=== PATIENT | male | born 1935 | race Caucasian/White ===

== ENCOUNTER 2018-01-22 06:19 | Emergency (ER) | payer OTHER, MEDICARE ==
[~2018-01-22] VITALS: Ht 182.9 cm; Wt 102.0 kg
[2018-01-22] MEDS ORDERED: PREDNISONE20 MG PO (09:10)
[2018-01-22 10:32] VITALS: BP 123/73
== END 2018-01-22 10:47 | disposition home or self-care (01) ==
LOC: EME 06:19 → EDBD 06:19 → EME 10:47
PROC: 08QPXZZ Repair Left Upper Eyelid, External Approach (ICD-10-PCS; principal; 2018-01-22)
DX: S01.112A Laceration without foreign body of left eyelid and periocular area, initial encounter (principal); J44.1 Chronic obstructive pulmonary disease with (acute) exacerbation; W19.XXXA Unspecified fall, initial encounter; I10 Essential (primary) hypertension; E11.51 Type 2 diabetes mellitus with diabetic peripheral angiopathy without gangrene; E78.5 Hyperlipidemia, unspecified; I69.359 Hemiplegia and hemiparesis following cerebral infarction affecting unspecified side; F41.9 Anxiety disorder, unspecified; F03.90 Unspecified dementia, unspecified severity, without behavioral disturbance, psychotic disturbance, mood disturbance, and anxiety; Z87.891 Personal history of nicotine dependence
CPT/HCPCS: 70450; 94640; 99281; 99284; J7512

== ENCOUNTER 2018-01-25 00:35 | Inpatient (IN) | payer OTHER, MEDICARE ==
[~2018-01-25] VITALS: Ht 190.5 cm; Wt 117.0 kg
[~2018-01-25 00:35] MED LIST: PREDNISONE20 MG PO
[2018-01-25 01:21] LABS: BASOPHIL (%) 0 % (0-1); EOSINOPHIL (%) 0.4 % (0-5); HEMATOCRIT 31.1 % (38.0-50.0); IMMATURE GRANULOCYTE (%) 0.6 % (0.0-0.7); LYMPHOCYTE (%) 9.5 % (15-42); LYMPHOCYTE COUNT 0.9 K/uL (1.0-2.8); MCH 31.7 PG (29.0-34.0); MCHC 32.2 G/DL (30.0-36.0); MCV 98.7 FL (86-99); MONOCYTE (%) 4.7 % (3-12); MONOCYTE COUNT 0.4 K/uL (0-0.8); NEUTROPHIL (%) 84.8 % (45-76); PLATELET COUNT 364 K/uL (156-360); RBC DIS.WIDTH-CV 13.7 % (11.8-14.6); RED BLOOD COUNT 3.15 M/uL (4.00-5.50); WHITE BLOOD COUNT 9.5 K/uL (4.1-10.2)
[2018-01-25 01:31] LABS: ALBUMIN 3.3 g/dL (3.2-4.8); CHLORIDE 98 mEq/L (99-109); POTASSIUM 5.7 mEq/L (3.7-5.4); SODIUM 136 mEq/L (136-147)
[2018-01-25 01:33] LABS: TOTAL PROTEIN 7.1 g/dL (6.4-8.3)
[2018-01-25 01:35] LABS: TOTAL BILIRUBIN 0.2 mg/dL (0.0-1.0)
[2018-01-25 01:37] LABS: ALKALINE PHOSPHATASE 122 IU/L (3-129); CREATININE 2.1 mg/dL (0.6-1.3); GFR ESTIMATE (CALCULATED) 32 mL/min/ (58.99-99999)
[2018-01-25 01:38] LABS: AST (GOT) 29 IU/L (2-34); UREA NITROGEN (BUN) 53 mg/dL (9-23)
[2018-01-25 01:40] LABS: ALT (GPT) 43 IU/L (3-49)
[2018-01-25 01:43] LABS: TROP-I INTERPRETATION NEGATIVE; TROPONIN-I 0.26 ng/mL (0.0-0.30)
[2018-01-25 01:46] LABS: GLUCOSE 480 mg/dL (70-99)
[2018-01-25 07:27] VITALS: BP 153/70
[2018-01-25 12:16] VITALS: BP 128/86
[2018-01-25 15:32] VITALS: BP 180/86
[2018-01-25] MEDS ORDERED: VITAMIN D31000 UNI2 PO (16:06)
[2018-01-25] MEDS ORDERED: LITE COAT ASPI325 M1 PO (16:07)
[2018-01-25] MEDS ORDERED: B-121000 MC2 PO (16:08)
[2018-01-25] MEDS ORDERED: LISINOPRIL10 MG PO (16:08)
[2018-01-25] MEDS ORDERED: MAG-OXIDE400 MG PO (16:09)
[2018-01-25] MEDS ORDERED: NAMENDA10 MG PO (16:10)
[2018-01-25] MEDS ORDERED: SIMVASTATIN80 MG PO (16:11)
[2018-01-25] MEDS ORDERED: GABAPENTIN100 MG PO (16:11)
[2018-01-25] MEDS ORDERED: LANTUS 10100 UNITS/ SQ (16:12)
[2018-01-25] MEDS ORDERED: HUMALOG100 UNIT/2 SC (16:14)
[2018-01-25] MEDS ORDERED: PREDNISONE20 MG PO (16:15)
[2018-01-25] MEDS ORDERED: LEVAQUIN250 MG PO (16:17)
[2018-01-25 19:22] VITALS: BP 164/74
[2018-01-26 00:20] VITALS: BP 162/80
[2018-01-26 07:21] VITALS: BP 124/71
[2018-01-26] MEDS ORDERED: DELTASONE20 M1 PO (09:30)
[2018-01-26] MEDS ORDERED: DUONEB 2.5-0.5 M3 ML AEROSOL ×2 (09:34→09:36)
[2018-01-26] MEDS ORDERED: ATIVAN1 MG PO (09:36)
[2018-01-26] MEDS ORDERED: LASIX20 MG PO (09:37)
[2018-01-26 11:10] VITALS: BP 133/69
[2018-01-26 15:08] VITALS: BP 142/64
[2018-01-26 19:48] VITALS: BP 137/65
[2018-01-26 23:35] VITALS: BP 167/75
[2018-01-27 04:21] VITALS: BP 131/68
[2018-01-27 06:34] LABS: HEMATOCRIT 34.6 % (38.0-50.0); HEMOGLOBIN 10.5 G/DL (12.5-16.6); MCH 30.8 PG (29.0-34.0); MCHC 30.3 G/DL (30.0-36.0); MCV 101.5 FL (86-99); NRBC (%) 0.2 /100 WBC (0-0); PLATELET COUNT 413 K/uL (156-360); RBC DIS.WIDTH-CV 13.8 % (11.8-14.6); RBC DIS.WIDTH-SD 51.8 % (39-53); RED BLOOD COUNT 3.41 M/uL (4.00-5.50); WHITE BLOOD COUNT 12.5 K/uL (4.1-10.2)
[2018-01-27 08:35] LABS: CHLORIDE 99 MEQ/L (99-109); GFR ESTIMATE (CALCULATED) 48 mL/min/ (58.99-99999); POTASSIUM 5.7 MEQ/L (3.7-5.4); SODIUM 138 MEQ/L (136-147); UREA NITROGEN (BUN) 36 mg/dL (9-23)
[2018-01-27 08:46] LABS: CREATININE 1.5 MG/DL (0.6-1.3); GLUCOSE 54 mg/dL (70-99)
[2018-01-27 08:56] VITALS: BP 123/59
[2018-01-27 10:57] LABS: HEMOGLOBIN A1c (GLYCOHEMOGLOB) 9.6 % (Below 5.7)
[2018-01-27 11:32] LABS: BASE EXCESS 3.8 mEq/L (-3 to +3); CARBOXY HGB 1.3 % (0-5); METHEMOGLOBIN 1.1 % (0-1.5); PCO2 68 mm Hg (35-45); PO2 58 mm Hg (80-100)
[2018-01-27 11:33] LABS: COMMENTS - BLOOD GASES A+C+; DEVICE NC; O2 FLOW 8 L/MIN; SITE RR; TOTAL RESP RATE 18 resp/min; pH 7.28 (7.35-7.45)
[2018-01-27 13:36] VITALS: BP 162/72
[2018-01-27 18:10] LABS: COMMENTS - BLOOD GASES A+C+; DEVICE HIGH FLOW NC; O2 FLOW 10 L/MIN; SITE RR; pH 7.32 (7.35-7.45)
[2018-01-27 18:11] LABS: BASE EXCESS 3.6 mEq/L (-3 to +3); BICARBONATE 30.9 mEq/L (22-26); O2 SATURATION (CALCULATED) 96.9 % (95-99); PCO2 60 mm Hg (35-45); PO2 85 mm Hg (80-100)
[2018-01-27 18:36] LABS: CHLORIDE 98 MEQ/L (99-109); CREATININE 1.5 MG/DL (0.6-1.3); GFR ESTIMATE (CALCULATED) 48 mL/min/ (58.99-99999); POTASSIUM 5.1 MEQ/L (3.7-5.4); SODIUM 137 MEQ/L (136-147); UREA NITROGEN (BUN) 42 mg/dL (9-23)
[2018-01-27 18:40] LABS: GLUCOSE 123 mg/dL (70-99)
[2018-01-27 19:36] VITALS: BP 159/74
[2018-01-28 00:40] VITALS: BP 139/76
[2018-01-28 04:45] VITALS: BP 128/65
[2018-01-28 05:50] LABS: HEMATOCRIT 30.9 % (38.0-50.0); HEMOGLOBIN 9.8 G/DL (12.5-16.6); MCH 30.8 PG (29.0-34.0); MCHC 31.7 G/DL (30.0-36.0); PLATELET COUNT 368 K/uL (156-360); RBC DIS.WIDTH-CV 13.3 % (11.8-14.6); RBC DIS.WIDTH-SD 47.8 % (39-53); RED BLOOD COUNT 3.18 M/uL (4.00-5.50); WHITE BLOOD COUNT 7.1 K/uL (4.1-10.2)
[2018-01-28 05:54] LABS: MCV 97.2 FL (86-99)
[2018-01-28 06:01] LABS: CHLORIDE 96 MEQ/L (99-109); CREATININE 1.8 MG/DL (0.6-1.3); GFR ESTIMATE (CALCULATED) 38 mL/min/ (58.99-99999); POTASSIUM 5.4 MEQ/L (3.7-5.4); SODIUM 137 MEQ/L (136-147); UREA NITROGEN (BUN) 53 mg/dL (9-23)
[2018-01-28 06:05] LABS: GLUCOSE 250 mg/dL (70-99)
[2018-01-28 07:30] VITALS: BP 169/93
[2018-01-28 11:43] VITALS: BP 168/86
[2018-01-28 20:45] VITALS: BP 161/81
[2018-01-28 23:49] VITALS: BP 178/86
[2018-01-29 01:32] VITALS: BP 144/67
[2018-01-29 03:32] VITALS: BP 147/65
[2018-01-29 05:36] LABS: HEMATOCRIT 29.2 % (38.0-50.0); HEMOGLOBIN 9.4 G/DL (12.5-16.6); MCH 31.4 PG (29.0-34.0); MCHC 32.2 G/DL (30.0-36.0); MCV 97.7 FL (86-99); NRBC (%) 0.2 /100 WBC (0-0); PLATELET COUNT 359 K/uL (156-360); RBC DIS.WIDTH-CV 13.5 % (11.8-14.6); RBC DIS.WIDTH-SD 48.5 % (39-53); RED BLOOD COUNT 2.99 M/uL (4.00-5.50); WHITE BLOOD COUNT 12.4 K/uL (4.1-10.2)
[2018-01-29 06:15] LABS: CHLORIDE 97 MEQ/L (99-109); CREATININE 1.7 MG/DL (0.6-1.3); GFR ESTIMATE (CALCULATED) 41 mL/min/ (58.99-99999); GLUCOSE 194 mg/dL (70-99); POTASSIUM 5.2 MEQ/L (3.7-5.4); SODIUM 136 MEQ/L (136-147); UREA NITROGEN (BUN) 55 mg/dL (9-23)
[2018-01-29 07:53] VITALS: BP 177/77
[2018-01-29 12:00] VITALS: BP 129/65
[2018-01-29 17:30] VITALS: BP 165/78
[2018-01-29 19:45] VITALS: BP 148/81
[2018-01-30] VITALS: BP 141/77
[2018-01-30 03:00] VITALS: BP 133/85
[2018-01-30 06:52] VITALS: BP 137/65
[2018-01-30 11:05] VITALS: BP 128/62
[2018-01-30 15:50] VITALS: BP 155/78
[2018-01-30 21:30] VITALS: BP 153/79
[2018-01-31] VITALS (7 sets, daily range): BP systolic 136–156; BP diastolic 67–92
[2018-01-31 15:07] LABS: COMMENTS - BLOOD GASES A+C+; DEVICE NRBM; FI02 100 %; O2 FLOW 15 L/MIN; PCO2 68 mm Hg (35-45); PO2 81 mm Hg (80-100); SITE RIGHT RAD; TOTAL RESP RATE 18 resp/min; pH 7.39 (7.35-7.45)
[2018-01-31 15:08] LABS: BASE EXCESS 13.7 mEq/L (-3 to +3); BICARBONATE 41.2 mEq/L (22-26); CARBOXY HGB 1.2 % (0-5); METHEMOGLOBIN 0.4 % (0-1.5)
[2018-01-31 15:10] LABS: BASOPHIL (%) 0 % (0-1); EOSINOPHIL (%) 0.3 % (0-5); HEMATOCRIT 32.9 % (38.0-50.0); HEMOGLOBIN 10.4 G/DL (12.5-16.6); IMMATURE GRANULOCYTE (%) 0.4 % (0.0-0.7); LYMPHOCYTE (%) 4.2 % (15-42); LYMPHOCYTE COUNT 0.5 K/uL (1.0-2.8); MCH 31.1 PG (29.0-34.0); MCHC 31.6 G/DL (30.0-36.0); MCV 98.5 FL (86-99); MONOCYTE (%) 3.9 % (3-12); MONOCYTE COUNT 0.4 K/uL (0-0.8); NEUTROPHIL (%) 91.2 % (45-76); NEUTROPHIL COUNT 10.3 K/uL (1.8-6.4); PLATELET COUNT 330 K/uL (156-360); RBC DIS.WIDTH-CV 13.4 % (11.8-14.6); RBC DIS.WIDTH-SD 48.6 % (39-53); RED BLOOD COUNT 3.34 M/uL (4.00-5.50); WHITE BLOOD COUNT 11.3 K/uL (4.1-10.2)
[2018-01-31 15:27] LABS: CHLORIDE 99 MEQ/L (99-109); CREATININE 1.7 MG/DL (0.6-1.3); GFR ESTIMATE (CALCULATED) 41 mL/min/ (58.99-99999); GLUCOSE 149 mg/dL (70-99); POTASSIUM 5.5 MEQ/L (3.7-5.4); SODIUM 139 MEQ/L (136-147); UREA NITROGEN (BUN) 63 mg/dL (9-23)
[2018-02-01 04:30] VITALS: BP 180/92
[2018-02-01 07:20] VITALS: BP 160/92
[2018-02-01 09:49] LABS: CREATININE 1.6 MG/DL (0.6-1.3)
[2018-02-01 11:23] VITALS: BP 164/82
[2018-02-01 16:25] VITALS: BP 175/82
[2018-02-01 19:44] VITALS: BP 139/98
[2018-02-01 23:40] LABS: APPEARANCE CLOUDY ((CLEAR)); BILIRUBIN NEGATIVE; BLOOD LARGE; COLOR YELLOW ((YELLOW)); GLUCOSE (STRIP) >=500; KETONES NEGATIVE; LEUKOCYTES NEGATIVE; NITRITE NEGATIVE; PROTEIN (STRIP) 100; SPECIFIC GRAVITY 1.016 (1.000-1.030); UROBILINOGEN 0.2 MG/DL (0.2-1.0)
[2018-02-01 23:50] LABS: BACTERIA NONE SEEN /HPF; EPITHELIAL CELLS NONE SEEN /HPF; MUCUS NONE SEEN /LPF; RED BLOOD CELLS TNTC /HPF (0-5); URIC ACID CRYSTALS 2+ /HPF
[2018-02-02] VITALS (9 sets, daily range): BP systolic 136–191; BP diastolic 63–103
[2018-02-02 05:09] LABS: CREATININE 1.6 MG/DL (0.6-1.3); VANCOMYCIN, TROUGH 19.7 MCG/ML (10-20)
[2018-02-02 19:17] LABS: UR CREATININE CONCENTRATION 66.6 MG/DL
[2018-02-03 03:48] VITALS: BP 147/77
[2018-02-03 07:29] LABS: BASOPHIL (%) 0.1 % (0-1); EOSINOPHIL (%) 0 % (0-5); HEMATOCRIT 32.9 % (38.0-50.0); HEMOGLOBIN 10.5 G/DL (12.5-16.6); IMMATURE GRANULOCYTE (%) 0.5 % (0.0-0.7); LYMPHOCYTE (%) 3.6 % (15-42); LYMPHOCYTE COUNT 0.5 K/uL (1.0-2.8); MCH 30.4 PG (29.0-34.0); MCHC 31.9 G/DL (30.0-36.0); MCV 95.4 FL (86-99); MONOCYTE (%) 5.1 % (3-12); MONOCYTE COUNT 0.8 K/uL (0-0.8); NEUTROPHIL (%) 90.7 % (45-76); NEUTROPHIL COUNT 13.6 K/uL (1.8-6.4); PLATELET COUNT 282 K/uL (156-360); RBC DIS.WIDTH-CV 13.5 % (11.8-14.6); RBC DIS.WIDTH-SD 47.5 % (39-53); RED BLOOD COUNT 3.45 M/uL (4.00-5.50)
[2018-02-03 07:36] VITALS: BP 168/79
[2018-02-03] MEDS ORDERED: FAMOTIDINE20 MG PO (10:05)
[2018-02-03] MEDS ORDERED: PREDNISONE20 MG PO (10:05)
[2018-02-03] MEDS ORDERED: APRESOLINE25 MG PO (10:05)
[2018-02-03] MEDS ORDERED: DOCUSATE SODIU100 MG PO (10:05)
[2018-02-03 10:07] LABS: CHLORIDE 95 MEQ/L (99-109); CREATININE 1.6 MG/DL (0.6-1.3); GFR ESTIMATE (CALCULATED) 44 mL/min/ (58.99-99999); PHOSPHORUS 3.4 mg/dL (2.5-4.9); POTASSIUM 4.7 MEQ/L (3.7-5.4); SODIUM 134 MEQ/L (136-147); UREA NITROGEN (BUN) 58 mg/dL (9-23)
[2018-02-03 10:10] LABS: GLUCOSE 303 mg/dL (70-99)
[2018-02-03 11:16] VITALS: BP 138/65
[2018-02-03 15:28] VITALS: BP 147/70
[2018-02-03 17:11] VITALS: BP 160/76
[2018-02-04 00:57] VITALS: BP 175/86
[2018-02-04 05:32] VITALS: BP 172/84
[2018-02-04 07:35] LABS: BASOPHIL (%) 0.1 % (0-1); EOSINOPHIL (%) 0.2 % (0-5); HEMATOCRIT 36.6 % (38.0-50.0); HEMOGLOBIN 11.9 G/DL (12.5-16.6); IMMATURE GRANULOCYTE (%) 0.7 % (0.0-0.7); LYMPHOCYTE (%) 6.4 % (15-42); LYMPHOCYTE COUNT 1.2 K/uL (1.0-2.8); MCH 31.2 PG (29.0-34.0); MCHC 32.5 G/DL (30.0-36.0); MCV 95.8 FL (86-99); MONOCYTE (%) 7.3 % (3-12); MONOCYTE COUNT 1.3 K/uL (0-0.8); NEUTROPHIL (%) 85.3 % (45-76); NEUTROPHIL COUNT 15.6 K/uL (1.8-6.4); PLATELET COUNT 293 K/uL (156-360); RBC DIS.WIDTH-CV 13.7 % (11.8-14.6); RBC DIS.WIDTH-SD 47.8 % (39-53); RED BLOOD COUNT 3.82 M/uL (4.00-5.50); WHITE BLOOD COUNT 18.3 K/uL (4.1-10.2)
[2018-02-04 07:58] VITALS: BP 178/81
[2018-02-04 08:02] LABS: CHLORIDE 99 MEQ/L (99-109); CREATININE 1.6 MG/DL (0.6-1.3); GFR ESTIMATE (CALCULATED) 44 mL/min/ (58.99-99999); POTASSIUM 4.5 MEQ/L (3.7-5.4); SODIUM 139 MEQ/L (136-147); UREA NITROGEN (BUN) 54 mg/dL (9-23)
[2018-02-04 08:07] LABS: GLUCOSE 107 mg/dL (70-99)
[2018-02-04 16:42] VITALS: BP 128/58
[2018-02-04 23:54] VITALS: BP 143/63
[2018-02-05 07:35] VITALS: BP 154/73
[2018-02-05 16:00] VITALS: BP 139/64
[2018-02-06] VITALS: BP 126/74
[2018-02-06 07:13] VITALS: BP 100/59
[2018-02-06 07:13] LABS: BASOPHIL (%) 0.1 % (0-1); EOSINOPHIL (%) 3.8 % (0-5); EOSINOPHIL COUNT 0.5 K/uL (0-0.3); HEMATOCRIT 32.9 % (38.0-50.0); HEMOGLOBIN 10.7 G/DL (12.5-16.6); IMMATURE GRANULOCYTE (%) 0.6 % (0.0-0.7); LYMPHOCYTE (%) 7.7 % (15-42); MCH 30.7 PG (29.0-34.0); MCHC 32.5 G/DL (30.0-36.0); MCV 94.5 FL (86-99); MONOCYTE (%) 6.3 % (3-12); MONOCYTE COUNT 0.8 K/uL (0-0.8); NEUTROPHIL (%) 81.5 % (45-76); NEUTROPHIL COUNT 10.5 K/uL (1.8-6.4); PLATELET COUNT 247 K/uL (156-360); RBC DIS.WIDTH-CV 13.9 % (11.8-14.6); RBC DIS.WIDTH-SD 47.8 % (39-53); RED BLOOD COUNT 3.48 M/uL (4.00-5.50); WHITE BLOOD COUNT 12.9 K/uL (4.1-10.2)
[2018-02-06 07:37] LABS: CHLORIDE 96 MEQ/L (99-109); GFR ESTIMATE (CALCULATED) 34 mL/min/ (58.99-99999); GLUCOSE 117 mg/dL (70-99); POTASSIUM 4.4 MEQ/L (3.7-5.4); SODIUM 134 MEQ/L (136-147); UREA NITROGEN (BUN) 65 mg/dL (9-23)
[2018-02-06 15:06] VITALS: BP 104/63
[2018-02-07] VITALS: BP 118/65
[2018-02-07 05:14] VITALS: BP 125/60
[2018-02-07 07:08] LABS: HEMATOCRIT 34.1 % (38.0-50.0); HEMOGLOBIN 11.2 G/DL (12.5-16.6); MCH 31.2 PG (29.0-34.0); MCHC 32.8 G/DL (30.0-36.0); PLATELET COUNT 244 K/uL (156-360); RBC DIS.WIDTH-CV 14.1 % (11.8-14.6); RBC DIS.WIDTH-SD 48.7 % (39-53); RED BLOOD COUNT 3.59 M/uL (4.00-5.50); WHITE BLOOD COUNT 12.4 K/uL (4.1-10.2)
[2018-02-07 07:10] VITALS: BP 104/59
[2018-02-07 07:39] LABS: ALBUMIN 2.4 G/DL (3.2-4.8); CHLORIDE 100 MEQ/L (99-109); CREATININE 2.2 MG/DL (0.6-1.3); GFR ESTIMATE (CALCULATED) 31 mL/min/ (58.99-99999); GLUCOSE 114 mg/dL (70-99); PHOSPHORUS 3.8 mg/dL (2.5-4.9); POTASSIUM 4.4 MEQ/L (3.7-5.4); SODIUM 136 MEQ/L (136-147); UREA NITROGEN (BUN) 64 mg/dL (9-23)
[2018-02-07 12:35] VITALS: BP 118/66
[2018-02-07 15:16] VITALS: BP 100/60
[2018-02-08 00:34] VITALS: BP 118/57
[2018-02-08 06:26] LABS: HEMATOCRIT 33.6 % (38.0-50.0); HEMOGLOBIN 10.6 G/DL (12.5-16.6); MCH 30.3 PG (29.0-34.0); MCHC 31.5 G/DL (30.0-36.0); PLATELET COUNT 250 K/uL (156-360); RBC DIS.WIDTH-CV 14.3 % (11.8-14.6); RBC DIS.WIDTH-SD 49.1 % (39-53); WHITE BLOOD COUNT 11.9 K/uL (4.1-10.2)
[2018-02-08 06:49] LABS: ALBUMIN 2.2 G/DL (3.2-4.8); CHLORIDE 99 MEQ/L (99-109); CREATININE 2.5 MG/DL (0.6-1.3); GFR ESTIMATE (CALCULATED) 26 mL/min/ (58.99-99999); GLUCOSE 151 mg/dL (70-99); PHOSPHORUS 4.8 mg/dL (2.5-4.9); POTASSIUM 4.6 MEQ/L (3.7-5.4); SODIUM 135 MEQ/L (136-147); UREA NITROGEN (BUN) 70 mg/dL (9-23)
[2018-02-08 08:15] VITALS: BP 105/60
[2018-02-08 14:27] VITALS: BP 119/66
[2018-02-08] MEDS ORDERED: ZOLPIDEM TARTRAT5 MG PO (15:45)
[2018-02-08 16:16] VITALS: BP 110/62
[2018-02-09 00:38] VITALS: BP 106/57
[2018-02-09 05:18] VITALS: BP 151/68
[2018-02-09 05:46] LABS: BASOPHIL (%) 0.1 % (0-1); EOSINOPHIL (%) 0.1 % (0-5); HEMATOCRIT 34.8 % (38.0-50.0); IMMATURE GRANULOCYTE (%) 0.7 % (0.0-0.7); LYMPHOCYTE (%) 7.6 % (15-42); LYMPHOCYTE COUNT 0.9 K/uL (1.0-2.8); MCH 30.6 PG (29.0-34.0); MCHC 31.6 G/DL (30.0-36.0); MCV 96.7 FL (86-99); MONOCYTE (%) 5.2 % (3-12); MONOCYTE COUNT 0.6 K/uL (0-0.8); NEUTROPHIL (%) 86.3 % (45-76); NEUTROPHIL COUNT 10.4 K/uL (1.8-6.4); PLATELET COUNT 258 K/uL (156-360); RBC DIS.WIDTH-CV 14.5 % (11.8-14.6); RBC DIS.WIDTH-SD 50.8 % (39-53)
[2018-02-09 06:12] LABS: ALBUMIN 2.5 G/DL (3.2-4.8); CHLORIDE 103 MEQ/L (99-109); CREATININE 2.2 MG/DL (0.6-1.3); GFR ESTIMATE (CALCULATED) 31 mL/min/ (58.99-99999); GLUCOSE 163 mg/dL (70-99); PHOSPHORUS 4.6 mg/dL (2.5-4.9); POTASSIUM 5.2 MEQ/L (3.7-5.4); SODIUM 136 MEQ/L (136-147); UREA NITROGEN (BUN) 66 mg/dL (9-23)
[2018-02-09 07:27] VITALS: BP 159/66
[2018-02-09 16:08] VITALS: BP 125/68
== END 2018-02-09 17:21 | DRG 177 ==
LOC: EME 00:35 → EDOF 02:45 → ENRESERV 03:44 → CANRESERV 03:44 → EDOF 04:05 → 3EAST 04:05 → EDOF 04:05 → ENRESERV 04:07 → 3EAST 06:32 → ENRESERV 01-27 12:29 → 4EAST 01-27 13:16 → ENRESERV 02-01 13:48 → 5SOUTH 02-01 15:13
PROVIDERS: Emergency Medicine; Family Medicine; Hospitalist; Internal Medicine; Internal Medicine Nephrology
DX: J69.0 Pneumonitis due to inhalation of food and vomit (principal); J96.01 Acute respiratory failure with hypoxia; J96.02 Acute respiratory failure with hypercapnia; N17.9 Acute kidney failure, unspecified; E87.2 Acidosis; I13.0 Hypertensive heart and chronic kidney disease with heart failure and stage 1 through stage 4 chronic kidney disease, or unspecified chronic kidney disease; E87.5 Hyperkalemia; E11.22 Type 2 diabetes mellitus with diabetic chronic kidney disease; I50.9 Heart failure, unspecified; I69.359 Hemiplegia and hemiparesis following cerebral infarction affecting unspecified side; N18.3 Chronic kidney disease, stage 3 (moderate); F03.90 Unspecified dementia, unspecified severity, without behavioral disturbance, psychotic disturbance, mood disturbance, and anxiety; J44.0 Chronic obstructive pulmonary disease with (acute) lower respiratory infection; J44.1 Chronic obstructive pulmonary disease with (acute) exacerbation; M19.90 Unspecified osteoarthritis, unspecified site; Z79.4 Long term (current) use of insulin; J20.9 Acute bronchitis, unspecified; S01.81XD Laceration without foreign body of other part of head, subsequent encounter; W19.XXXD Unspecified fall, subsequent encounter; K21.9 Gastro-esophageal reflux disease without esophagitis; E78.5 Hyperlipidemia, unspecified; Y95 Nosocomial condition; Z99.81 Dependence on supplemental oxygen; R31.9 Hematuria, unspecified; E66.9 Obesity, unspecified; Z68.32 Body mass index [BMI] 32.0-32.9, adult; N39.0 Urinary tract infection, site not specified; E11.65 Type 2 diabetes mellitus with hyperglycemia; F32.9 Major depressive disorder, single episode, unspecified; F41.9 Anxiety disorder, unspecified; Z87.01 Personal history of pneumonia (recurrent); I69.318 Other symptoms and signs involving cognitive functions following cerebral infarction
CPT/HCPCS: 36600; 70450; 71045; 71046; 71260; 76770; 80048; 80048 91; 80053; 80069; 80202; 81003; 82010; 82565; 82570; 82803; 82948; 83036; 83605; 83735; 83880; 84100; 84145 90; 84156; 84484; 85025; 85027; 87040; 87086; 87641; 92526 GN; 92610 GN; 93005; 94640; 94640 76; 94760; 94799; 99202; 99281; 99284; 99285; J0360; J0456; J0692; J0696; J1170; J1200; J1644; J1815; J1940; J2060; J2270; J2543; J2930; J3370; J7030; J7040; J7050; J7512